=== PATIENT | male | born 1995 | race African-American/Black ===

== ENCOUNTER 2018-04-01 02:22 | Emergency (ER) | payer OTHER, MEDICAID ==
[2018-04-01] MEDS ORDERED: levETIRAcetam 500 MG TAB PO ONE (02:57)
--- NOTE | 2018-04-01 02:59 | EDPHY ---
H & P Stated Complaint: med refill of keppra 1000mg ran out 2 days ago Time Seen by Provider: 04/01/18 02:38 HPI/ROS: HPI The patient presents with request for medication refill of his Keppra of which he takes at 1000 mg daily. He has been out of it for the last 1 day. He recently arrived to [place]. He used to live here and is working on getting in to housing. He has not had any seizures. He has been on Keppra for years.. REVIEW OF SYSTEMS 10 systems were reviewed and negative with the exception of the elements mentioned in the history of present illness. PMHx: Epilepsy Soc Hx: Homeless PHYSICAL General Appearance: Alert, no distress Eyes: Pupils equal and round no pallor or injection ENT, Mouth: Mucous membranes moist Respiratory: There are no retractions, lungs are clear to auscultation Cardiovascular: Regular rate and rhythm Gastrointestinal: Abdomen is soft and non-tender, no masses, bowel sounds normal Neurological: A&O, moves all extremities Skin: Warm and dry, no rashes Musculoskeletal: Neck is supple non tender Extremities: symmetrical, full range of motion Psychiatric: Patient is oriented X 3, there is no agitation Source: Patient Exam Limitations: No limitations - Personal History Current Tetanus/Diphtheria Vaccine: Yes Current Tetanus Diphtheria and Acellular Pertussis (TDAP): Yes - Medical/Surgical History Hx Asthma: No Hx Chronic Respiratory Disease: No Hx Diabetes: No Hx Cardiac Disease: No Hx Renal Disease: No Hx Cirrhosis: No Hx Alcoholism: No Hx HIV/AIDS: No Hx Splenectomy or Spleen Trauma: No Other PMH: epilepsy, PTSD - Social History Smoking Status: Current every day smoker Constitutional: Initial Vital Signs Temperature (C) 36.3 C 04/01/18 02:24 Heart Rate 63 04/01/18 02:24 Respiratory Rate 16 04/01/18 02:24 Blood Pressure 145/78 H 04/01/18 02:24 O2 Sat (%) 99 04/01/18 02:24 O2 Delivery Mode Room Air Allergies/Adverse Reactions: No Known Allergies Allergy (Unverified 04/01/18 02:28) Home Medications: Medication Instructions Recorded Keppra 1000 mg 04/01/18 levETIRAcetam [Keppra 500 mg (*)] 500 mg PO BID 30 Days tab 04/01/18 Medical Decision Making Differential Diagnosis: 22-year-old male with known history of epilepsy presents for medication refill of Keppra. He has been out of it for the last 1 day. He has not had any seizures. He is recently relocated to [place]. Plan for dose of Keppra here with prescription refill given. I have given him information for [facility] to arrange for follow-up. He is happy with this plan. - Data Points Medications Given: Discontinued Medications Levetiracetam (Keppra) 1,000 mg PO EDNOW ONE Stop: 04/01/18 02:58 Last Admin: 04/01/18 03:07 Dose: 1,000 mg Departure - Departure Disposition: Home, Routine, Self-Care Clinical Impression: Encounter for medication refill, Seizure disorder Condition: Good Instructions: Epilepsy (ED) Additional Instructions: [facility] has walk-in appointments for the homeless at the following days/locations. No appointment is needed. Sunday 8-10 am @ [facility] 11 AM-1 PM @ [facility] Sunday 8-10:30 AM @ [facility] Sunday 8-10 AM @ [facility] 2-4 PM @ [facility] Sunday 8-10 AM @ [facility] Referrals: [facility],. [Clinic] - As per Instructions Prescriptions: levETIRAcetam [Keppra 500 mg (*)] 500 mg PO BID 30 Days tab
[2018-04-01 03:21] VITALS: BP 124/67
== END 2018-04-01 03:21 | disposition home or self-care (01) ==
DX: Z76.0 Encounter for issue of repeat prescription (principal); G40.909 Epilepsy, unspecified, not intractable, without status epilepticus; Z59.0 Homelessness

== ENCOUNTER 2018-04-04 20:25 | Emergency (ER) | payer OTHER ==
[2018-04-04 21:07] LABS: PLATELET COUNT 205 10^3/uL (150-400)
--- NOTE | 2018-04-04 21:53 | EDPHY ---
H & P Stated Complaint: JAIME DIAZ, recent [facility] release, hasn't had his keppra Source: Patient - Personal History Current Tetanus Diphtheria and Acellular Pertussis (TDAP): No - Medical/Surgical History Hx Asthma: No Hx Chronic Respiratory Disease: No Hx Diabetes: No Hx Cardiac Disease: No Hx Renal Disease: No Hx Cirrhosis: No Hx Alcoholism: No Hx HIV/AIDS: No Hx Splenectomy or Spleen Trauma: No Other PMH: epilepsy, PTSD, anxiety, depression - Social History Smoking Status: Current every day smoker Time Seen by Provider: 04/04/18 21:56 HPI/ROS: HPI CHIEF COMPLAINT: Depression, homeless HISTORY OF PRESENT ILLNESS: 22-year-old male, history of epilepsy, takes Keppra , [facility] [place] took a bus here to [place]. He states he lives in [place]. He states currently he staying at a homeless detention. He is originally from [place]. States he has a history of depression, anxiety, PTSD and bipolar disorder. He does not take any medications. Presents emergency room by walk-in feeling depressed, states been binge drinking alcohol recently. Like to speak with mental health. Past Medical History: Bipolar disorder, anxiety, PTSD, homelessness, epilepsy on Keppra Past Surgical History: No recent surgery Social History: Alcohol use. Homeless. Family History: Noncontributory ROS REVIEW OF SYSTEMS: 10 Systems were reviewed and negative with the exception of the elements mentioned in the history of present illness. Exam Constitutional triage nursing summary reviewed, vital signs reviewed, awake/ alert. Eyes normal conjunctivae and sclera, EOMI, PERRLA. HENT normal inspection, atraumatic, moist mucus membranes, no epistaxis, neck supple/ no meningismus, no raccoon eyes. Respiratory clear to auscultation bilaterally, normal breath sounds, no respiratory distress, no wheezing. Cardiovascular rate normal, regular rhythm, no murmur, no edema, distal pulses normal. Gastrointestinal soft, non-tender, no rebound, no guarding, normal bowel sounds, no distension, no pulsatile mass. Genitourinary no CVA tenderness. Musculoskeletal no midline vertebral tenderness, full range of motion, no calf swelling, no tenderness of extremities, no meningismus, good pulses, neurovascularly intact. Skin pink, warm, & dry, no rash, skin atraumatic. Neurologic awake, alert and oriented x 3, AAOx3, moves all 4 extremities equally, motor intact, sensory intact, CN II-XII intact, normal cerebellar, normal vision, normal speech. Psychiatric flat affect. Heme/Lymph/Immune no lymphadenopathy. Differential Diagnosis: Includes but is not limited to in a particular order underlying depression, mood disorder, bipolar disorder, suicidal ideation Medical Decision Making: Plan for this patient blood draw for medical clearance. Patient is voluntary wants to speak to mental health. Will arrange soon as possible. Re-evaluation: No acute events overnight Signed over at 7:00 a.m. Shift change to Dr. Amaya ([facility]) Constitutional: Initial Vital Signs Temperature (C) 36.7 C 04/04/18 20:28 Heart Rate 87 04/04/18 20:28 Respiratory Rate 16 04/04/18 20:28 Blood Pressure 152/80 H 04/04/18 20:28 O2 Sat (%) 94 04/04/18 20:28 O2 Delivery Mode Room Air Allergies/Adverse Reactions: No Known Allergies Allergy (Unverified 04/04/18 20:27) Home Medications: Medication Instructions Recorded Keppra 1000 mg 04/01/18 levETIRAcetam [Keppra 500 mg (*)] 500 mg PO BID 30 Days tab 04/01/18 Medical Decision Making ED Course/Re-evaluation: Patient underwent mental health evaluation. It is felt that he can be discharged from the emergency department. Follow-up information provided. ( Susie Amaya) - Data Points Laboratory Results: Laboratory Results 04/04/18 20:10 04/04/18 20:45 Medications Given: Discontinued Medications Levetiracetam (Keppra) 1,000 mg PO EDNOW ONE Stop: 04/04/18 22:00 Last Admin: 04/04/18 22:02 Dose: 1,000 mg Departure - Departure Disposition: Home, Routine, Self-Care Clinical Impression: Bipolar disorder, PTSD (post-traumatic stress disorder) Condition: Good Instructions: Post Traumatic Stress Disorder (ED), Suicide Prevention (ED) Referrals: Luis Houser MD [Medical Doctor] - As per Instructions [facility],. [Clinic] - As per Instructions
[2018-04-04] MEDS ORDERED: levETIRAcetam 500 MG TAB PO ONE (21:59)
[2018-04-05 08:50] VITALS: BP 132/91
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
--- NOTE | 2018-04-05 14:19 | ASMTTCLDSP ---
TLC Discharge Disposition Disposition: Answers: Discharge Disposition Notes: Notes: In consultation with [facility] ED physician, Susie Amaya MD, and on-call Nurse Practioner, SHANTELL Barragan both concurred that pt does not appear to meet 27-65 criteria requiring psychiatric hospitalization as pt does not appear to be an imminent risk of harm to self due to a mental illness condition Date Signed: 04/05/2018 02:19 PM Electronically Signed By:Raul Gómez
== END 2018-04-05 13:23 | disposition home or self-care (01) ==
DX: F31.9 Bipolar disorder, unspecified (principal); F43.10 Post-traumatic stress disorder, unspecified; Z59.0 Homelessness
CPT/HCPCS: 80305; G0480

== ENCOUNTER 2018-05-09 02:34 | Emergency (ER) | payer OTHER, MEDICAID ==
[2018-05-09] MEDS ORDERED: levETIRAcetam 500 MG TAB PO ONE (04:34)
--- NOTE | 2018-05-09 04:34 | EDPHY ---
H & P Stated Complaint: med refill request Time Seen by Provider: 05/09/18 04:00 HPI/ROS: HPI The patient presents with refill request for his Keppra 1000 mg which he takes once daily. He has been taking this for years for seizure disorder. He ran out 2 days ago after having a prescription filled in the emergency department by me about 1 month ago. He has made an appointment [facility] however it is not until next week. He has not had any seizures. REVIEW OF SYSTEMS 10 systems were reviewed and negative with the exception of the elements mentioned in the history of present illness. 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 PHYSICAL General Appearance: Alert, no distress Eyes: Pupils equal and round no pallor or injection ENT, Mouth: Mucous membranes moist Respiratory: There are no retractions, lungs are clear to auscultation Cardiovascular: Regular rate and rhythm Gastrointestinal: Abdomen is soft and non-tender, no masses, bowel sounds normal Neurological: A&O, moves all extremities Skin: Warm and dry, no rashes Musculoskeletal: Neck is supple non tender Extremities: symmetrical, full range of motion Psychiatric: Patient is oriented X 3, there is no agitation Source: Patient Exam Limitations: No limitations - Personal History Current Tetanus Diphtheria and Acellular Pertussis (TDAP): Yes - Medical/Surgical History Hx Asthma: No Hx Chronic Respiratory Disease: No Hx Diabetes: No Hx Cardiac Disease: No Hx Renal Disease: No Hx Cirrhosis: No Hx Alcoholism: No Hx HIV/AIDS: No Hx Splenectomy or Spleen Trauma: No Other PMH: epilepsy, PTSD, anxiety, depression - Social History Smoking Status: Light smoker Constitutional: Initial Vital Signs Temperature (C) 36.6 C 05/09/18 03:02 Heart Rate 87 05/09/18 03:02 Respiratory Rate 16 05/09/18 03:02 Blood Pressure 124/83 H 05/09/18 03:02 O2 Sat (%) 94 05/09/18 03:02 O2 Delivery Mode Room Air Allergies/Adverse Reactions: No Known Allergies Allergy (Unverified 05/09/18 03:02) Home Medications: Medication Instructions Recorded Keppra 1000 mg 04/01/18 levETIRAcetam [Keppra 500 mg (*)] 500 mg PO BID 30 Days tab 04/01/18 levETIRAcetam [Keppra 500 mg (*)] 500 mg PO BID 14 Days tab 05/09/18 Medical Decision Making Differential Diagnosis: This is a 22-year-old homeless male new to the area who presents asking for refill of his Keppra. He ran out a few days ago. He does have an appointment at [facility] next week. I will give him a short course of Keppra and a dose here. I have stressed the importance of following up the [facility]. - Data Points Medications Given: Discontinued Medications Levetiracetam (Keppra) 1,000 mg PO EDNOW ONE Stop: 05/09/18 04:35 Last Admin: 05/09/18 04:37 Dose: 1,000 mg Departure - Departure Disposition: Home, Routine, Self-Care Clinical Impression: Medication refill, Seizure disorder Condition: Good Instructions: Medicine Refill (ED) Referrals: [facility],. [Clinic] - As per Instructions Prescriptions: levETIRAcetam [Keppra 500 mg (*)] 500 mg PO BID 14 Days tab
[2018-05-09 04:41] VITALS: BP 120/74
== END 2018-05-09 04:40 | disposition home or self-care (01) ==
DX: Z76.0 Encounter for issue of repeat prescription (principal); G40.909 Epilepsy, unspecified, not intractable, without status epilepticus; Z59.0 Homelessness

== ENCOUNTER 2018-05-13 13:43 | Emergency (ER) | payer OTHER ==
--- NOTE | 2018-05-13 13:52 | EDPHY ---
General - History Smoking Status: Light smoker Time Seen by Provider: 05/13/18 13:51 Narrative: CLINICAL IMPRESSION: Suicidal ideation, aggressive behavior. ASSESSMENT/PLAN: Patient is a 22-year-old male with a significant history of epilepsy on Keppra who presents with suicidal ideation and aggressive behavior. Patient is afebrile and nontoxic-appearing, he is in no acute distress however yelling at EMS upon arrival. Physical examination is unremarkable. CBC revealed no evidence of leukocytosis or anemia. His vital signs were reviewed and no findings to suggest bacterial illness. Metabolic panel with no metabolic abnormalities or acute kidney injury. Tylenol, salicylate and alcohol negative. Drug screen positive for THC. There were no clinical findings to suggest infectious process, intoxication, metabolic abnormality or other toxidrome. The patient is currently being formally evaluated weighted by behavioral health. This case was discussed with Dr. Burnette who will resume care of this patient at this time. DIFFERENTIAL DX: Psychosis including but not limited to chronic psychosis, medication noncompliance, medication side effect, depression and illicit drug use. ED COURSE: 1351: Discussed with Dr. Carranza 1725: Discussed with Dr. Burnette, he will resume care of this patient at this time CHIEF COMPLAINT: SI, aggressive behavior HPI: Patient is a 22-year-old male with a history of epilepsy on Keppra who presents to the emergency department on M1 hold placed by the [facility]. Per report patient made several comments of suicidal ideation as well as wanting to kill himself if they made him leave the facility. Reportedly, on multiple attempts the patient threatened violence to staff at the [facility]. Patient was subsequently placed on M1 hold and sent here for further evaluation. During transport, the patient continued to be verbally aggressive and threatening to EMS. He is a very poor historian, he is refusing to answer any questions. He denies any specific complaint on arrival to the emergency department. Unsure of medication compliance. PMH: Denies Pertinent Past Surgical History: Epilepsy Family History: Noncontributory Social History: Marijuana, denies alcohol REVIEW OF SYSTEMS: All other systems negative Constitutional: No fever, no chills, appetite change. Eyes: No discharge, vision change ENT: No sore throat, congestion, ear pain. Cardiovascular: No chest pain, no palpitations. Respiratory: No cough, no shortness of breath. Gastrointestinal: No abdominal pain, no vomiting, diarrhea. Genitourinary: No hematuria, dysuria, flank pain, pelvic pain Musculoskeletal: No back pain, joint swelling, joint pain, myalgias. Skin: No rashes, color change. Neurological: No headache, dizziness, weakness. PHYSICAL EXAM: General Appearance: Patient is malodorous, well-developed, not toxic appearing and in no acute distress- yelling at EMS staff on arrival to the emergency department. HENT: Normocephalic, atraumatic. Bilateral external ears are normal. Nares are clear, mucosa is pink. Oropharynx is clear, uvula is midline. Eyes: PERRLA, no acute vision change, nystagmus, swelling, discharge, pain or photosensitivity. Conjunctiva pink, no pallor or injection Neck: Supple, nontender, no lymphadenopathy, no midline pain, FROM, no meningismus. Respiratory: There are no retractions, lungs are clear to auscultation. Cardiac: Regular rate and rhythm, no murmurs or gallops. Gastrointestinal: Abdomen is soft, nontender, bowel sounds normal, no masses/ hernia, no rigidity, guarding or focal peritoneal findings. Neurological: Alert and oriented x 3, CN 2-12 grossly intact, normal gait no ataxia, DTR's intact, normal sensation and strength Skin: Warm, dry, no rashes, no nodules on palpation. Musculoskeletal: Extremities are symmetrical, full range of motion, no tenderness, deformity, swelling, or erythema. Psychiatric: Patient is oriented X 3, very agitated, threatening EMS upon arrival. MEDICAL DECISION MAKING: Patient was seen independently. Secondary supervising physician at time of evaluation was Dr. Carranza, Dr. Burnette. Diagnosis: SI. New, requires workup Summary: See Assessment and Plan for summary of ED visit Clinical lab tests: ordered / reviewed. Independent visualization of images, tracing, or specimens: Not applicable. Decision to obtain medical records or history from someone other than the patient: EMS Review / Summarize previous medical records: EMS Discussed patient with another provider: Yes, Dr. Carranza, Dr. Burnette. Patient Progress: Stable. (Latricia Wong) Medical Decision Making: Patient has been evaluated by mental health and they feel that the patient can be treated safely as an outpatient. I saw the patient at 7:05 p.m.. We discussed this pain. He does not have prescription for Keppra. He will be given his usual dose of Keppra here and I will write him prescription. I have encouraged follow up with [facility] to help with further prescriptions of Keppra. He expresses understanding and agreement (Jozef Burnette) - Objective Vital Signs: Initial Vital Signs Temperature (C) 36.9 C 05/13/18 14:00 Heart Rate 92 05/13/18 14:00 Respiratory Rate 18 05/13/18 14:00 Blood Pressure 126/78 H 05/13/18 14:00 O2 Sat (%) 97 05/13/18 14:00 O2 Delivery Mode Room Air Allergies/Adverse Reactions: No Known Allergies Allergy (Unverified 05/09/18 03:02) Home Medications: Medication Instructions Recorded Keppra 1000 mg 04/01/18 levETIRAcetam [Keppra 500 mg (*)] 500 mg PO BID 30 Days tab 04/01/18 levETIRAcetam [Keppra 500 mg (*)] 500 mg PO BID 14 Days tab 05/09/18 LEVETIRACETAM [Keppra 1000 mg] 1,000 mg PO BID #30 tab 05/13/18 Laboratory Results: Laboratory Results 05/13/18 14:45 05/13/18 14:45 05/13/18 05/13/18 05/13/18 14:55 14:45 14:45 WBC 8.70 10^3/uL 10^3/uL (3.80-9.50) RBC 6.46 10^6/uL H 10^6/uL (4.40-6.38) Hgb 15.8 g/dL g/dL (13.7-17.5) Hct 50.0 % % (40.0-51.0) MCV 77.4 fL L fL (81.5-99.8) MCH 24.5 pg L pg (27.9-34.1) MCHC 31.6 g/dL L g/dL (32.4-36.7) RDW 14.8 % % (11.5-15.2) Plt Count 190 10^3/uL 10^3/uL (150-400) MPV 11.6 fL fL (8.7-11.7) Neut % (Auto) 68.1 % % (39.3-74.2) Lymph % (Auto) 17.9 % % (15.0-45.0) Baxter % (Auto) 10.0 % % (4.5-13.0) Eos % (Auto) 3.2 % % (0.6-7.6) Baso % (Auto) 0.6 % % (0.3-1.7) Nucleat RBC Rel Count 0.0 % % (0.0-0.2) Absolute Neuts (auto) 5.92 10^3/uL 10^3/uL (1.70-6.50) Absolute Lymphs (auto) 1.56 10^3/uL 10^3/uL (1.00-3.00) Absolute Monos (auto) 0.87 10^3/uL H 10^3/uL (0.30-0.80) Absolute Eos (auto) 0.28 10^3/uL 10^3/uL (0.03-0.40) Absolute Basos (auto) 0.05 10^3/uL 10^3/uL (0.02-0.10) Absolute Nucleated RBC 0.00 10^3/uL 10^3/uL (0-0.01) Immature Gran % 0.2 % % (0.0-1.1) Immature Gran # 0.02 10^3/uL 10^3/uL (0.00-0.10) Sodium 136 mEq/L mEq/L (135-145) Potassium 4.1 mEq/L mEq/L (3.5-5.2) Chloride 103 mEq/L mEq/L (97-110) Carbon Dioxide 25 mEq/l mEq/l (22-31) Anion Gap 8 mEq/L mEq/L (6-14) BUN 10 mg/dL mg/dL (7-23) Creatinine 0.9 mg/dL mg/dL (0.7-1.3) Estimated GFR > 60 Glucose 89 mg/dL mg/dL (70-100) Calcium 9.2 mg/dL mg/dL (8.5-10.4) Salicylates < 1.0 mg/dL L mg/dL (2.0-20.0) Urine Opiates Screen NEGATIVE ng/mL ng/mL (NEGATIVE) Acetaminophen < 10 mcg/mL L mcg/mL (10-30) Urine Barbiturates NEGATIVE ng/mL ng/mL (NEGATIVE) Ur Phencyclidine Scrn NEGATIVE ng/mL ng/mL (NEGATIVE) Ur Amphetamines Screen NEGATIVE ng/mL ng/mL (NEGATIVE) U Benzodiazepines Scrn NEGATIVE ng/mL ng/mL (NEGATIVE) Urine Cocaine Screen NEGATIVE ng/mL ng/mL (NEGATIVE) U Marijuana (THC) Screen 285 ng/mL ng/mL (NEGATIVE) Ethyl Alcohol < 10 mg/dL mg/dL (0-10) Medications Given: Discontinued Medications Levetiracetam (Keppra) 1,000 mg PO EDNOW ONE Stop: 05/13/18 19:12 Last Admin: 05/13/18 19:57 Dose: 1,000 mg Throat Lozenges (Cepacol Lozenge) 1 ea PO EDNOW ONE Stop: 05/13/18 18:02 Last Admin: 05/13/18 18:40 Dose: 1 ea Departure - Departure Disposition: Home, Routine, Self-Care Clinical Impression: Suicidal ideation Condition: Good Instructions: Suicide Prevention (ED) Additional Instructions: Return for further thoughts of harming herself or others. Follow-up with resources provided by mental health Resume taking your Keppra. Referrals: NONE *PRIMARY CARE P,. [Primary Care Provider] - As per Instructions [facility] [Outside] - As per Instructions [facility] [Outside] - As per Instructions Prescriptions: LEVETIRACETAM [Keppra 1000 mg] 1,000 mg PO BID #30 tab
[2018-05-13 14:56] VITALS: BP 126/78
[2018-05-13 14:58] LABS: PLATELET COUNT 190 10^3/uL (150-400)
[2018-05-13] MEDS ORDERED: CEPACOL LOZENGE PO ONE (18:01)
[2018-05-13] MEDS ORDERED: levETIRAcetam 500 MG TAB PO ONE (19:11)
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
--- NOTE | 2018-05-13 20:50 | ASMTTCLDSP ---
[facility]LC Discharge Disposition Disposition: Answers: Discharge If Answers: Yes DISCHARGED: Patient/family given suicide hotline info & SAMHSA brochure? Disposition Notes: Notes: Pt was encouraged to follow up with [facility]. Discharge Concerns/Recommendations: Notes: In consultation with [facility] ED physician, Jozef Burnette MD, and on-call psychiatrist, Ed Moore MD, both concurred that pt does not appear to meet 27-65 criteria requiring psychiatric hospitalization as pt does not appear to be an imminent risk of harm to self/others/gravely disabled due to a mental illness condition. Psychiatrist vacating M1 Ed Moore MD Hold: Date and time M1 hold 05/13/2018 06:45 PM vacated (time format is hh:mm): Date Signed: 05/13/2018 08:49 PM Electronically Signed By:Susana James
== END 2018-05-13 20:00 | disposition home or self-care (01) ==
LOC: EDUNIT# → EEVIPCON 13:43
DX: R45.851 Suicidal ideations (principal); G40.909 Epilepsy, unspecified, not intractable, without status epilepticus; Z79.899 Other long term (current) drug therapy
CPT/HCPCS: 80307; G0480